=== PATIENT | male | born 1940 | race Caucasian/White ===

== ENCOUNTER 2016-09-02 05:58 | Day surgery (SDC) | payer MEDICARE, OTHER ==
[2016-08-30 16:16] LABS: HEMATOCRIT 37.5 % (40.0-51.0); HEMOGLOBIN 13.3 g/dL (13.6-17.8)
[2016-08-30 16:28] LABS: CALCIUM, SERUM 9.8 MG/DL (8.5-10.4); CHLORIDE, SERUM 107 MMOL/L (96-112); CO2 (CARBON DIOXIDE) 26 MMOL/L (24-34); CREATININE 1.31 MG/DL (0.70-1.30); GFR AFRICAN AMERICAN 60 ML/MIN (>=60); GFR NON AFRICAN AMERICAN 52 ML/MIN (>=60); POTASSIUM, SERUM 3.9 MMOL/L (3.5-5.3); SODIUM, SERUM 139 MMOL/L (135-148)
[2016-08-30 16:31] LABS: BUN (BLOOD UREA NITROGEN) 24 MG/DL (6-23); GLUCOSE, SERUM 124 MG/DL (60-99)
--- NOTE | ~2016-09-02 | OP ---
Record Of Operation [facility] [address] [place]. [address] NAME: ALEXSANDER MCDONALD : 38 STATUS : [facility]#: [id number] AGE: 76 ADM/REG DATE : 09/02/16 MR#: [id number] REPORT SERV DATE: 09/02/16 DICTATED BY: SUNDEEP ETIENNE DATE: 09/02/16 REPORT STATUS : Draft TRANSCRIBED BY: MODL DATE: 09/02/16 DATE OF PROCEDURE: 09/02/2016 PREOPERATIVE DIAGNOSIS: Chronic pansinusitis with deviated nasal septum. POSTOPERATIVE DIAGNOSIS: Chronic pansinusitis with deviated nasal septum. PROCEDURE: Bilateral total ethmoidectomy with bilateral frontal sinusotomy, and right sphenoid sinusotomy with tissue removal, and septoplasty. SURGEON: Sundeep Etienne M.D. ANESTHESIA: General endotracheal. ESTIMATED BLOOD LOSS: 75 mL. INTRAOPERATIVE FLUIDS: 900 mL of crystalloid. INTRAOPERATIVE FINDINGS: Purulent drainage within the maxillary sinuses on both sides, with extensive mucosal thickening, and purulent drainage throughout the ethmoid sinuses on both sides, extending into the frontal sinuses. There was a densely sclerotic bone throughout the ethmoid sinuses on both sides, which was removed with the assistance of the image guidance. As expected, preoperatively, there was a densely sclerotic bone which prevented opening the lateral aspect of the left frontal sinus. The surgically created maxillary antrostomies were widely patent from previous surgery with no evidence of retained tissue to suggest the presence of recirculation syndrome. The drainage in the maxillary sinuses appear to be related to drainage arising from the ethmoid sinuses draining into the maxillary sinus. A right-sided nasal septal deflection limited access to the right middle meatus. I did, therefore, performed a septoplasty to complete the surgery on the right side. OPERATIVE PROCEDURE: The patient was identified in the holding room, transported to the operating room. In the operating room, the patient was placed on the operating table in supine position. Following induction of anesthesia, the patient was intubated without difficulty. Afrin-soaked pledgets were placed to the nose, bilaterally. The patient was prepped and draped in preparation for his nasal surgery. A rigid nasal endoscopy was performed which revealed purulent drainage within the maxillary sinuses on both sides. The material in the right maxillary sinus was collected in a Lukens trap and sent for routine culture. There was a high deflection of the nasal septum to the right side which limited access to the middle meatus. At this point, I determined that a septoplasty would be require to gain access to the right middle meatus. At this point, the septum was injected with 1% lidocaine with 1:100,000 epinephrine. Attention was then returned to the left side of the nose. Once again, there was purulent drainage and crusting within the left maxillary sinus. The drainage was removed and the maxillary sinus was irrigated. Examination of the surgically created maxillary sinus antrostomy revealed no evidence of retained tissue to suggest the presence were recirculation syndrome. As discussed with the patient, Record Of Operation [facility] [address] [facility] [place]. [address] NAME: ALEXSANDER MCDONALD : 38 STATUS : [facility]#: [id number] AGE: 76 ADM/REG DATE : 09/02/16 MR#: [id number] REPORT SERV DATE: 09/02/16 DICTATED BY: SUNDEEP ETIENNE DATE: 09/02/16 REPORT STATUS : Draft TRANSCRIBED BY: VAL DATE: 09/02/16 preoperatively, it appears as though the purulent drainage in the maxillary sinus was arising from the ethmoids, draining into the maxillary sinus. The ethmoid air cells were opened on the left side using blunt dissection. There was purulent drainage within the ethmoid sinuses which was removed along with associated inflammatory tissue. There was a densely sclerotic bone in the posterior and superior portion of the ethmoid sinus which was carefully removed with the sinus shaving instrumentation, with the assistance of the image guidance system. There was a medial extension of the lamina papyracea at the junction of the [id number] third of the orbit which was confirmed on the image guidance system. This bone was left intact to avoid violation of the lamina papyracea with periorbital fat exposure. There was inflammatory tissue extending posteriorly behind this deflection in the of lamina papyracea which was removed. With the assistance of the 30 and 70 degree scope, additional bone and soft tissue was removed from the area of the nasal frontal recess, extending into the left frontal sinus. There was a pocket of purulent drainage and mucosal thickening in the medial aspect of the frontal sinus which was opened. I did use the sinus shaving instrumentation to open the sclerotic bone extending into the lateral portion of the frontal sinus; however, with the densely sclerotic bone in the appearance of the sinus on a CT scan, I opted not to continue dissection in this area with concern for complication. A septoplasty was then performed to gain access to the right middle meatus. A [place] incision was created in the left side of the nose. A mucoperichondrial flap was developed and extended posteriorly over the bony cartilaginous junction. An incision was created through the quadrangular cartilage, leaving a greater than 1 cm caudal strut. The mucoperichondrial flap was then developed in a similar fashion in the right side of the nose. A strip of deflected cartilage was removed from the floor of the nose, removing a width of approximately 8 mm of cartilage from this area. The quadrangular cartilage was then divided from the bony nasal septum, leaving the strong dorsal attachment. This did allow the remaining quadrangular cartilage to return to the midline, and no further cartilaginous resection was required. There was a moderate deviation of the bony nasal septum to the right side which was removed. In prior septoplasty bone had been removed from the inferior portion of the bony nasal septum with moderate scarring of the mucosal flaps in this area. I was unable to elevate these flaps without creating a rent in the mucoperiosteal flap on both sides. The bony nasal septal deflection was removed. There was an additional spur along the floor of the nose related to hypertrophic bone along the nasal crest, which was removed with the use of an osteotome. The flaps were placed and the septum was noted to be in the midline. The [place] incision was closed with interrupted 4-0 chromic suture. A quilting stitch was placed. On placing the quilting stitch, the rent in the mucoperichondrial flap, particular on the left side, was closely reapproximated, with no residual defect evident in the left mucoperichondrial and mucoperiosteal flap following completion of the septoplasty. With the septum returned to the midline, there was marked improvement in access to the right middle meatus. There was a reaccumulation of purulent drainage within the right maxillary sinus which was removed. There was moderate mucosal thickening involving the klein of the maxillary sinus following removal of this material as no residual debris identified. As expected, there was evidence of purulent drainage following from the ethmoid sinus into the maxillary sinus at the posterior aspect of the antrostomy. A right total ethmoidectomy was performed in similar fashion to that described on the left side. On the right side, there was a densely sclerotic bone preventing visualization of chronic infection in the posterior-superior ethmoid air cells. This bone was carefully removed with assistance from the image guidance system. The bone was removed Record Of Operation [address] [address] NAME: ALEXSANDER MCDONALD : 38 STATUS : [facility]#: [id number] AGE: 76 ADM/REG DATE : 09/02/16 MR#: [id number] REPORT SERV DATE: 09/02/16 DICTATED BY: SUNDEEP ETIENNE DATE: 09/02/16 REPORT STATUS : Draft TRANSCRIBED BY: VAL DATE: 09/02/16 without violation of the lamina papyracea or skull base. This did allow for evacuation of the infection in the ethmoid air cells. Once again, with the assistance of the 30 and 70 degree scope, additional bone and soft tissue was removed from the nasal frontal recess, creating a wide opening into the right frontal sinus. There was a segmental narrowing between the lamina papyracea and the skull base for which no further surgery was performed in this area. A right sphenoid sinusotomy was then performed. The superior turbinate was partially removed with the use of the sinus shaving instrumentation. Probing medial to the superior turbinate these natural right sphenoid sinus ostium was encounter. The sphenoid sinus ostium was enlarged removing tissue inferiorly and medially. Fluid from the right sphenoid sinus was collected in Lukens trap and sent for routine culture. The sphenoid Sinusotomy was further enlarged and the sphenoid sinus was copiously irrigated. There was inflammatory tissue in the anterior ethmoid air cells along the floor, near the area where the drainage tract from the ethmoid sinus into the maxillary sinus had been previously identified. This polypoid tissue was then removed with the use of the sinus shaving instrumentation. At the end of operative procedure, there was no significant bleeding. With the densely sclerotic bone identified from his previous surgeries, I placed multiple propel splints to both sides of the nose. On the right side, a mini propel splint was placed into the frontal sinus, with particular attention to the medial pocket within the frontal sinus. A standard propel splint was placed into the ethmoid cavity with the apex extending into the most posterior portion of the ethmoid cavity. On the right side, a mini propel splint was placed into the right frontal, and sphenoid sinus, as well as a standard propel within the ethmoid cavity. Hendrix splints were then applied to the nose. The patient was subsequently awakened from anesthesia, extubated in the OR room, transported to recovery room in good condition. The patient tolerated the procedure well. There were no apparent complications. Specimens included right sphenoid, bilateral ethmoid, and bilateral frontal sinus contents, with nasal septal bone and cartilage. Aspirate from the right sphenoid and right maxillary sinuses for routine culture. There were no apparent complications. ROJAS/VAL Sundeep Etienne M.D. / [id number] CC: Amarilis Henderson CONTRESIA
[~2016-09-02 05:58] MED LIST: ACET500CAP PO; ACTONEL150 MG PO; ACTONEL35 MG PO; ASAB PO; ASAEC PO; BETAPACE80 PO; CALCIUM PO; CALTRA600D PO; CENTRUM PO; CENTRUM TAB1 TAB PO; CLARIT10 PO; COZ50 PO; FERROUS SULF325 M1 PO; FLONASE NAS; FOSAMAX70 MG PO; GLUCCHONDR PO; HALF81 PO; HEMOCYTE324 MG PO; HYZAAR 50/12.51 TAB PO; HYZAAR1 TAB PO; IRON PO; LIPITOR20 PO; MCZ25 PO; MOBIC7.5 PO; MULTIPLE VIT PO; NABUMETONE750 MG PO; NASAREL29 MCG NAS; NEUR300 PO; NEUR600 PO; NEXIUM40 PO; NORV5 PO; PRILO PO; SIN10 PO; SORINE160 MG PO; TRAZ100 PO; ULTRAM50 PO; VITAMIN D31000 UNIT PO; VOLTAREN1 % TOP; ZYRTEC ALLGY10 MG PO
== END 2016-09-02 13:19 | disposition home or self-care (01) ==
LOC: SDC 05:58
PROVIDERS: Otolaryngology
PROC: 09BU4ZZ Excision of Right Ethmoid Sinus, Percutaneous Endoscopic Approach (ICD-10-PCS; 2016-09-02)
PROC: 099T4ZZ Drainage of Left Frontal Sinus, Percutaneous Endoscopic Approach (ICD-10-PCS; 2016-09-02)
PROC: 099S4ZZ Drainage of Right Frontal Sinus, Percutaneous Endoscopic Approach (ICD-10-PCS; 2016-09-02)
PROC: 099W4ZZ Drainage of Right Sphenoid Sinus, Percutaneous Endoscopic Approach (ICD-10-PCS; 2016-09-02)
PROC: 09QM0ZZ Repair Nasal Septum, Open Approach (ICD-10-PCS; principal; 2016-09-02 07:15)
PROC: 09BV4ZZ Excision of Left Ethmoid Sinus, Percutaneous Endoscopic Approach (ICD-10-PCS; 2016-09-02 07:15)
DX: J34.2 Deviated nasal septum (principal); J32.8 Other chronic sinusitis; I10 Essential (primary) hypertension; K21.9 Gastro-esophageal reflux disease without esophagitis; M19.90 Unspecified osteoarthritis, unspecified site; M81.0 Age-related osteoporosis without current pathological fracture; Z87.01 Personal history of pneumonia (recurrent); Z90.89 Acquired absence of other organs; Z98.890 Other specified postprocedural states; Z87.891 Personal history of nicotine dependence; Z88.2 Allergy status to sulfonamides; Z98.52 Vasectomy status
CPT/HCPCS: 80048; 85014; 85018; 87015; 87070; 87075; 87077; 87102; 87116; 87186; 88305; 93005; A9270-GY; C2625; J0690; J1956; J2250; J2710; J3010